=== PATIENT | female | born 1930 | race Caucasian/White ===

== ENCOUNTER 2016-08-18 14:01 | Emergency (ER) | payer MEDICARE ==
[2016-08-18 14:24] VITALS: O2SAT 96
[2016-08-18] MEDS ORDERED: Sodium Chloride 0.9% 1000 ML 1,000 ML IV STA (14:42)
--- NOTE | 2016-08-18 14:48 | ERPHSYRPT ---
- History of Present Illness Time Seen by Provider: 08/18/16 14:25 Source: patient, family Exam Limitations: no limitations Patient Subjective Stated Complaint: pt states she has been feeling weak for the past one week. pt family states she thinks pt is dehydrated. denies any recent illness or cough. pt states she does not want to eat or drink. Triage Nursing Assessment: pt pink, warm,dry. pt able to transfer to er cot without difficulty. pt afebrile. pt tongue dry. pt alert and oriented x3. family concerned about weight loss. Timing/Duration: week(s) (1) Severity: moderate Character of Deficits: general (difuse) Deficits: weak Baseline/Normal Cognition: alert oriented x 3 Current Cognition: alert oriented x 3 Baseline Gait: walks w/o assistance Associated Symptoms: weakness, headache (frontal) Allergies/Adverse Reactions: Penicillins Allergy (Verified 08/18/16 14:24) Rash Home Medications: Aspirin EC 81 mg [Ecotrin 81 mg] 81 mg PO DAILY 02/13/13 [History] Calcitriol 0.25 mcg PO UD 02/13/13 [History] Clopidogrel Bisulfate 75 mg [PLAVIX 75 MG Tablet] 75 mg PO DAILY 02/13/13 [History] HydrALAzine HCL 25 MG TAB [Apresoline 25 MG TABLET] 50 mg PO TID 02/13/13 [History] Metoprolol Succinate 50 mg [Toprol Xl 50 MG] 50 mg PO DAILY 02/13/13 [ History] PANTOPRAZOLE 40 mg Tablet [Protonix 40MG Tablet] 40 mg PO DAILY 02/13/13 [ History] Hydrochlorothiazide 25 mg [hydroDIURIL 25 MG] 25 mg PO DAILY 09/15/13 [ History] Atorvastatin Calcium [Lipitor] 20 mg PO HS 12/21/14 [History] Ergocalciferol (Vitamin D2) [Vitamin D2] 50,000 unit PO Q14D 12/21/14 [History] Isosorbide Mononitrate [Isosorbide Mononitrate ER] 30 mg PO DAILY 12/21/14 [ History] Hx Tetanus, Diphtheria Vaccination/Date Given: Yes (up to date) Hx Influenza Vaccination/Date Given: Yes Hx Pneumococcal Vaccination/Date Given: Yes Immunizations Up to Date: Yes - Review of Systems Constitutional: Weakness Eyes: No Symptoms Ears, Nose, & Throat: Throat Swelling, Other (feels as if her throat is dry and closing off) Respiratory: No Symptoms Cardiac: No Symptoms Abdominal/Gastrointestinal: No Symptoms Genitourinary Symptoms: No Symptoms Musculoskeletal: No Symptoms Skin: No Symptoms Neurological: Dizziness Psychological: No Symptoms Endocrine: No Symptoms Hematologic/Lymphatic: No Symptoms Immunological/Allergic: No Symptoms - Past Medical History Pertinent Past Medical History: Yes Neurological History: No Pertinent History ENT History: Cataracts Cardiac History: Coronary Artery Disease, High Cholesterol, Hypertension, Myocardial Infarction ([place]) Respiratory History: COPD, Pneumonia Endocrine Medical History: No Pertinent History Musculoskeletal History: Arthritis GI Medical History: No Pertinent History, Gallbladder Disease History: Renal Disease Psycho-Social History: No Pertinent History Female Reproductive Disorders: Cervical Cancer Other Medical History: 3 stents-CARDIAC. anemic - Past Surgical History Past Surgical History: Yes Neuro Surgical History: No Pertinent History Cardiac: Cardiac Catheterization, Cardiac Stent Respiratory: No Pertinent History Gastrointestinal: Cholecystectomy Genitourinary: No Pertinent History Musculoskeletal: No Pertinent History Female Surgical History: Lumpectomy, Tubal Ligation Other Surgical History: BLADDER "PATCHED" - Social History Smoking Status: Never smoker Exposure to second hand smoke: No Alcohol Use: None Drug Use: none Patient Lives Alone: No Significant Family History: heart disease, cancer, diabetes, hypertension - Female History Hx Now: No - Nursing Vital Signs Nursing Vital Signs: Initial Vital Signs Temperature 97.9 F Temperature Source Oral Pulse Rate 66 Respiratory Rate 18 Blood Pressure 151/56 Pain Intensity 0 - [place] Coma Scale Best Eye Response (Joanna): (4) open spontaneously Best Verbal Response (Joanna): (5) oriented Best Motor Response (Empire): (6) obeys commands Joanna Total: 15 - Physical Exam General Appearance: mild distress Eye Exam: bilateral eye: normal inspection, PERRL, EOMI Ears, Nose, Throat Exam: normal ENT inspection Neck Exam: normal inspection, non-tender, supple, full range of motion Respiratory: normal breath sounds, lungs clear Cardiovascular: regular rate/rhythm, normal heart sounds, normal peripheral pulses Gastrointestinal: soft, normal bowel sounds Back Exam: normal inspection, normal range of motion Extremity Exam: normal inspection Mental Status: alert, oriented x 3, 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 Exam: normal hearing, normal speech, PERRL Coordination/Gait: normal finger to nose Skin Exam: normal color SpO2 Interpretation: normal SpO2: 96 Oxygen Delivery: Room Air - Course Nursing assessment & vital signs reviewed: Yes EKG Interpreted by Me: RATE (53), Sinus Bob, Left [place] Deviation (-52), Other (Lateral T wave inversion since ECG of .) - Radiology Exams Chest X-ray Interpretation: Teleradiologist Report (Stable nonacute chest) - CT Exams Head CT Interpretation: Negative, Tele-radiologist Report Ordered Tests: Active Orders 24 hr Category Date Time Status Quarter Supervisor STAT Care 08/18/16 14:24 Active Clean Catch Urine Specimen STAT Care 08/18/16 14:42 Active EKG-ER Only STAT Care 08/18/16 14:42 Active IV Insertion STAT Care 08/18/16 14:25 Active IV Insertion STAT Care 08/18/16 14:42 Active Orthostatic Vital Signs STAT Care 08/18/16 14:42 Active CHEST 1 VIEW (PORTABLE) Stat Exams 08/18/16 14:42 Completed HEAD WITHOUT CONTRAST [CT] Stat Exams 08/18/16 14:42 Completed CBC W DIFF Stat Lab 08/18/16 15:00 Completed CMP Stat Lab 08/18/16 15:00 Completed MAGNESIUM Stat Lab 08/18/16 15:00 Completed TROPONIN Stat Lab 08/18/16 15:00 Completed UA Stat Lab 08/18/16 14:42 Completed Urine Triage Profile Stat Lab 08/18/16 14:42 Ordered Medication Summary Discontinued Medications Generic Name Dose Route Start Last Admin Trade Name Freq PRN Reason Stop Dose Admin Aspirin 324 mg 08/18/16 15:42 08/18/16 15:47 Baby Aspirin 81 Mg Chew PO 08/18/16 15:43 324 mg STAT ONE Administration Sodium Chloride 1,000 mls @ 999 mls/hr 08/18/16 14:42 08/18/16 14:59 Sodium Chloride 0.9% 1000 Ml IV 08/18/16 15:42 500 mls/hr .Q1H1M STA Administration Sodium Chloride Confirm 08/18/16 14:50 Sodium Chloride 0.9% 1000 Ml Administered 08/18/16 14:51 Dose 1,000 mls @ ud .ROUTE .STK-MED ONE Nitroglycerin 1 gm 08/18/16 15:41 08/18/16 15:47 Nitro-Bid 2% Ud Packets TOP 08/18/16 15:42 1 gm STAT ONE Administration Potassium Chloride 40 meq 08/18/16 15:45 Klor Con 10 Meq PO 08/18/16 15:46 STAT ONE Lab/Rad Data: Laboratory Result Diagrams 08/18/16 15:00 08/18/16 15:00 Laboratory Results 08/18/16 08/18/16 08/18/16 Range/Units 15:00 15:00 14:42 WBC 6.2 (4.0-10.5) K/mm3 RBC 4.27 (4.1-5.4) M/mm3 Hgb 12.8 (12.0-16.0) gm/dl Hct 39.1 (35-47) % MCV 91.6 (78-100) fl MCH 30.0 (26-32) pg MCHC 32.7 (32-36) g/dl RDW 12.8 (11.5-14.0) % Plt Count 202 (150-450) K/mm3 MPV 10.2 H (6-9.5) fl Gran % 59.4 (36.0-66.0) % Lymphocytes % 28.8 (24.0-44.0) % Monocytes % 8.9 (0.0-12.0) % Eosinophils % 2.7 (0.00-5.0) % Basophils % 0.2 (0.0-0.4) % Basophils # 0.01 (0-0.4) Sodium 137 (136-145) mEq/L Potassium 2.5 L* (3.5-5.1) mEq/L Chloride 87 L (98-107) mEq/L Carbon Dioxide 36.3 H (21-32) mEq/L Anion Gap 15.4 H (5-15) MEQ/L BUN 90 H (9-20) mg/dL Creatinine 3.29 H (0.55-1.30) mg/dl Estimated GFR 14 ML/MIN Glucose 141 H (70-110) MG/DL Calcium 10.1 (8.5-10.1) mg/dL Magnesium 2.5 H (1.8-2.4) mg/dL Total Bilirubin 0.7 (0.2-1.0) mg/dL AST 25 (15-37) U/L ALT 14 (12-78) U/L Alkaline Phosphatase 79 (46-116) U/L Troponin I 0.043 (0.000-0.056) ng/ml Serum Total Protein 8.2 (6.4-8.2) gm/dL Albumin 4.5 (3.4-5.0) g/dL Ur Collection Type CATH Urine Color YELLOW (YELLOW) Urine Appearance CLEAR (CLEAR) Urine pH 6.0 (5-6) Ur Specific Heidrick 1.010 (1.005-1.025) Urine Protein NEGATIVE (Negative) Urine Glucose (UA) NEGATIVE (NEGATIVE) mg/dL Urine Ketones NEGATIVE (NEGATIVE) Urine Nitrite NEGATIVE (NEGATIVE) Urine Bilirubin NEGATIVE (NEGATIVE) Urine Urobilinogen 0.2 (0-1) mg/dL Urine WBC (Auto) NEGATIVE (NEGATIVE) Urine RBC (Auto) NEGATIVE (0-5) Shon/ul Specimen Received 08/18/16 1500 - Progress Progress: improved Counseled pt/family regarding: lab results, diagnosis, need for follow-up, rad results - Departure Time of Disposition: 15:55 Departure Disposition: Transfer (To [facility] for Dr. Seth Sanchez) Clinical Impression: Hypokalemia Chest pain Qualifiers: Chest pain type: unspecified Qualified Code(s): R07.9 - Chest pain, unspecified Chronic kidney disease Qualifiers: Chronic kidney disease stage: unspecified stage Qualified Code(s): N18.9 - Chronic kidney disease, unspecified Condition: Stable Critical Care Time: Yes Critical Care Time(excluding separately billable procedures): 75-104 minutes
[2016-08-18] MEDS ORDERED: Sodium Chloride 0.9% 1000 ML 1,000 ML ONE (14:50)
[2016-08-18 15:07] LABS: COMPLETE URINE MICROSCOPIC? NO; Collection Type CATH
[2016-08-18 15:09] LABS: BASOPHIL % 0.2 % (0.0-0.4); Eosinophil % 2.7 % (0.00-5.0); Granulocytes % 59.4 % (36.0-66.0); Lymphocytes % 28.8 % (24.0-44.0); Mean Cell Volume 91.6 fl (78-100); Mean Platelet Volume 10.2 fl (6-9.5); Monocytes % 8.9 % (0.0-12.0); Platelet Count 202 K/mm3 (150-450); Red Blood Count 4.27 M/mm3 (4.1-5.4); Red Cell Distribution Width 12.8 % (11.5-14.0); White Blood Count 6.2 K/mm3 (4.0-10.5)
--- NOTE | 2016-08-18 15:29 | XRAY ---
Indication: Dizziness. Comparison: Dec, 2014 Portable chest remains hyperinflated and clear. Heart is not enlarged. Vascularity normal. Bony thorax intact again with mild osteopenia and degenerative changes. Impression: Stable nonacute chest with chronic features.
--- NOTE | 2016-08-18 15:34 | XRAY ---
Indication: Dizziness and weakness. Multiple contiguous axial images obtained through the head without contrast. Comparison: September 12, 2007 Stable age-appropriate global atrophy and basal ganglion physiologic calcifications. No acute intracranial hemorrhage, abnormal extra-axial fluid collection, or mass effect. Fourth ventricle is midline without hydrocephalus. Sanderson-white matter differentiation is preserved. Bony calvarium intact. Visualized paranasal sinuses and mastoid air cells are clear. Impression: Stable negative CT head without contrast exam. CT DI is 66.59
[2016-08-18 15:35] LABS: ALBUMIN 4.5 g/dL (3.4-5.0); ANION GAP 15.4 MEQ/L (5-15); BILIRUBIN,TOTAL 0.7 mg/dL (0.2-1.0); Carbon Dioxide 36.3 mEq/L (21-32); MAGNESIUM 2.5 mg/dL (1.8-2.4); TROPONIN 0.043 ng/ml (0.000-0.056); Total Protein 8.2 gm/dL (6.4-8.2)
[2016-08-18] MEDS ORDERED: NITRO-BID 2% UD PACKETS TOP ONE (15:41)
[2016-08-18] MEDS ORDERED: BABY ASPIRIN 81 MG CHEW PO ONE (15:42)
[2016-08-18 15:45] LABS: Potassium 2.5 mEq/L (3.5-5.1)
[2016-08-18] MEDS ORDERED: Klor Con 10 MEQ PO ONE (15:45)
[2016-08-18] MEDS ORDERED: NITRO-BID 2% UD PACKETS ONE (15:46)
[2016-08-18] MEDS ORDERED: BABY ASPIRIN 81 MG CHEW ONE (15:46)
[2016-08-18 17:23] VITALS: BP 128/61
[2016-08-18 17:59] VITALS: PULSE 55
== END 2016-08-18 18:09 | disposition short-term general hospital (02) ==
LOC: ED 14:01
DX: R07.9 Chest pain, unspecified (principal); N18.9 Chronic kidney disease, unspecified; E87.6 Hypokalemia; Z79.899 Other long term (current) drug therapy; I25.10 Atherosclerotic heart disease of native coronary artery without angina pectoris; I10 Essential (primary) hypertension; E78.00 Pure hypercholesterolemia, unspecified
CPT/HCPCS: 93041; 99284; 36000; 96360; 96361; 93005; 81002; 36415; 83735; 80307; 85025; 80053; 84484; 71010; 70450; P9612

== ENCOUNTER 2016-12-29 21:18 | Emergency (ER) | payer MEDICARE ==
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
[2016-12-29 22:33] LABS: BASOPHIL % 0.2 % (0.0-0.4); Eosinophil % 3.3 % (0.00-5.0); Granulocytes % 45.2 % (36.0-66.0); Lymphocytes % 33.2 % (24.0-44.0); Mean Cell Volume 95.4 fl (78-100); Mean Corpuscular Hemoglobin 30.3 pg (26-32); Mean Platelet Volume 9.6 fl (6-9.5); Monocytes % 18.1 % (0.0-12.0); Platelet Count 185 K/mm3 (150-450); Red Blood Count 3.23 M/mm3 (4.1-5.4); Red Cell Distribution Width 12.6 % (11.5-14.0)
[2016-12-29 23:07] LABS: ALBUMIN 3.1 g/dL (3.4-5.0); ALKALINE PHOSPHATASE 85 U/L (46-116); BILIRUBIN,TOTAL 0.3 mg/dL (0.2-1.0); BLOOD UREA NITROGEN 33 mg/dL (9-20); CHLORIDE 103 mEq/L (98-107); Carbon Dioxide 25.6 mEq/L (21-32); Glucose 119 MG/DL (70-110); Potassium 3.8 mEq/L (3.5-5.1); SGOT/AST 14 U/L (15-37); SGPT/ALT 9 U/L (12-78); SODIUM 137 mEq/L (136-145); Total Protein 6.9 gm/dL (6.4-8.2)
[2016-12-29 23:14] LABS: TROPONIN < 0.017 ng/ml (0.000-0.056)
[2016-12-29] MEDS ORDERED: Zithromax 250 MG TABLET PO ONE (23:44)
[2016-12-29] MEDS ORDERED: Zithromax 250 MG TABLET ONE (23:50)
[2016-12-29 23:59] VITALS: BP 130/80; PULSE 80; O2SAT 96
--- NOTE | 2016-12-30 09:25 | XRAY ---
Indication: Cough. Comparison: August 18, 2016. Portable chest remains hyperinflated with focal right base fibrosis/scarring. Remaining lungs clear. Heart is not enlarged. New left-sided dual-lead pacemaker. Vascularity normal. Bony thorax intact again with osteopenia and degenerative changes. Impression: Nonacute chest with chronic features. New left sided dual-lead pacemaker without complications.
== END 2016-12-30 00:15 | disposition home or self-care (01) ==
LOC: ED 21:18
DX: H66.001 Acute suppurative otitis media without spontaneous rupture of ear drum, right ear (principal); R05 Cough; J40 Bronchitis, not specified as acute or chronic; I25.10 Atherosclerotic heart disease of native coronary artery without angina pectoris; E78.5 Hyperlipidemia, unspecified; I10 Essential (primary) hypertension; I25.2 Old myocardial infarction; Z98.61 Coronary angioplasty status; Z79.899 Other long term (current) drug therapy
CPT/HCPCS: 36000; 36415; 71010; 80053; 83880; 84484; 85025; 93005; 99284; A9270-GY

== ENCOUNTER 2017-03-02 14:24 | Emergency (ER) | payer MEDICARE ==
[2017-03-02] MEDS ORDERED: BACIGUENT PACKET TP ONE (15:25)
[2017-03-02] MEDS ORDERED: TYLENOL 325 MG PO ONE (15:26)
[2017-03-02 15:27] VITALS: BP 160/70; PULSE 78; O2SAT 97
[2017-03-02] MEDS ORDERED: BACIGUENT PACKET ONE (15:31)
[2017-03-02] MEDS ORDERED: TYLENOL 325 MG ONE (15:31)
[2017-03-02] MEDS ORDERED: TENIVAC VIAL IM ONE (15:32)
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
[2017-03-02] MEDS ORDERED: Adacel Vial IM ONE (15:52)
== END 2017-03-02 16:06 | disposition home or self-care (01) ==
LOC: ED 14:24
DX: T23.4 Corrosion of unspecified degree of wrist and hand (principal); Y93.H3 Activity, building and construction; Y92.018 Other place in single-family (private) house as the place of occurrence of the external cause
CPT/HCPCS: 90471; 90715; 96372; 99281; A9270-GY

== ENCOUNTER 2019-10-04 16:45 | Emergency (ER) | payer MEDICARE ==
--- NOTE | 2019-10-04 16:55 | ERPHSYRPT ---
- History of Present Illness Time Seen by Provider: 10/04/19 16:54 Source: patient Exam Limitations: no limitations Physician History: This is an 89-year-old female with a history of kidney disease, coronary artery disease with pacemaker placed in the past as well as hypertension. She presents with 3-day history of muscle aches and pains. She has a cough and sore throat. Denies vomiting and she denies abdominal pain. She denies diarrhea. Patient lives with her 71-year-old daughter and she has similar symptoms. Patient denies dysuria or frequency symptoms. Denies chest pain. Timing/Duration: day(s) (3) Cough Quality/Degree: mild Possible Cause: occasional episodes Modifying Factors: Improves With: coughing Associated Symptoms: cough, muscle aches Allergies/Adverse Reactions: Penicillins Allergy (Verified 10/04/19 17:03) Rash Home Medications: Aspirin EC 81 mg [Ecotrin 81 mg] 81 mg PO DAILY 02/13/13 [History] Calcitriol 0.25 mcg PO UD 02/13/13 [History] Clopidogrel Bisulfate 75 mg [PLAVIX 75 MG Tablet] 75 mg PO DAILY 02/13/13 [History] HydrALAzine HCL 25 MG TAB [Apresoline 25 MG TABLET] 10 mg PO TID 02/13/13 [History] Metoprolol Succinate 50 mg [Toprol Xl 50 MG] 50 mg PO DAILY 02/13/13 [ History] PANTOPRAZOLE 40 mg Tablet [Protonix 40MG Tablet] 40 mg PO DAILY 02/13/13 [ History] Hydrochlorothiazide 25 mg [hydroDIURIL 25 MG] 25 mg PO TID 09/15/13 [ History] Atorvastatin Calcium [Lipitor] 20 mg PO HS 12/21/14 [History] Isosorbide Mononitrate [Isosorbide Mononitrate ER] 30 mg PO DAILY 12/21/14 [ History] Furosemide 40 mg [Lasix 40 MG] 40 mg PO DAILY 08/18/16 [History] Hx Tetanus, Diphtheria Vaccination/Date Given: Yes (up to date) Hx Influenza Vaccination/Date Given: Yes Hx Pneumococcal Vaccination/Date Given: Yes - Review of Systems Constitutional: Weakness Eyes: No Symptoms Ears, Nose, & Throat: No Symptoms Respiratory: Cough Cardiac: No Symptoms Abdominal/Gastrointestinal: No Symptoms Genitourinary Symptoms: No Symptoms Musculoskeletal: Arthralgias, Myalgias Skin: No Symptoms Neurological: No Symptoms Psychological: No Symptoms Endocrine: No Symptoms Hematologic/Lymphatic: No Symptoms Immunological/Allergic: No Symptoms All Other Systems: Reviewed and Negative - Past Medical History Pertinent Past Medical History: Yes Neurological History: TIA ENT History: Cataracts Cardiac History: Coronary Artery Disease, High Cholesterol, Hypertension Respiratory History: No Pertinent History Endocrine Medical History: Other Musculoskeletal History: Osteoarthritis GI Medical History: No Pertinent History, Gallbladder Disease History: Renal Disease Psycho-Social History: No Pertinent History Female Reproductive Disorders: Cervical Cancer Other Medical History: STAGE 4 CKD, PACEMAKER PLACEMENT 2 YEARS AGO WITH HX OF STENT PLACEMENT X 3. - Past Surgical History Past Surgical History: Yes Neuro Surgical History: No Pertinent History Cardiac: Cardiac Catheterization, Cardiac Stent, Pacemaker Respiratory: No Pertinent History Gastrointestinal: Cholecystectomy Genitourinary: No Pertinent History Musculoskeletal: No Pertinent History Female Surgical History: Lumpectomy, Tubal Ligation Other Surgical History: BLADDER "PATCHED" - Social History Smoking Status: Never smoker Exposure to second hand smoke: No Alcohol Use: None Drug Use: none Patient Lives Alone: No Significant Family History: heart disease, cancer, diabetes, hypertension - Nursing Vital Signs Nursing Vital Signs: Initial Vital Signs Temperature 98.2 F 10/04/19 16:49 Pulse Rate 99 H 10/04/19 16:49 Respiratory Rate 8 L 10/04/19 16:49 Blood Pressure 188/104 10/04/19 16:49 O2 Sat by Pulse Oximetry 100 10/04/19 16:49 Pain Scale Pain Intensity 0 - Physical Exam General Appearance: mild distress, alert, anxiety Eye Exam: PERRL/EOMI, eyes nml inspection Ears, Nose, Throat Exam: normal ENT inspection, dry mucous membranes Neck Exam: normal inspection, non-tender, supple, full range of motion Respiratory Exam: normal breath sounds, lungs clear, airway intact, No chest tenderness, No respiratory distress Cardiovascular Exam: regular rate/rhythm, normal heart sounds, normal peripheral pulses Gastrointestinal/Abdomen Exam: soft, normal bowel sounds, No tenderness Pelvic Exam: not done Rectal Exam: not done Back Exam: normal inspection, normal range of motion, vertebral tenderness, No CVA tenderness Extremity Exam: normal inspection, normal range of motion, pelvis stable Neurologic Exam: alert, oriented x 3, cooperative, steel tester II-XII nml as tested Skin Exam: normal color, warm, dry Lymphatic Exam: No adenopathy SpO2 Interpretation: normal O2 Delivery: Room Air - Course Nursing assessment & vital signs reviewed: Yes EKG Interpreted by Me: RATE (81), Sinus Rhythm, NORMAL AXIS, NORMAL INTERVALS, NORMAL QRS, Other (Compared to an EKG performed on December 29, 2016, there is no significant change. On the current EKG there is no evidence of any acute findings) Ordered Tests: Active Orders 24 hr Category Date Time Status IV Insertion STAT Care 10/04/19 17:22 Active CHEST 1 VIEW (PORTABLE) Stat Exams 10/04/19 17:55 Taken AMYLASE Stat Lab 10/04/19 17:30 Completed CBC W DIFF Stat Lab 10/04/19 17:30 Completed CMP Stat Lab 10/04/19 17:30 Completed CULTURE,URINE Stat Lab 10/04/19 20:03 Received LIPASE Stat Lab 10/04/19 17:30 Completed [place] Screen Stat Lab 10/04/19 17:30 Completed TROPONIN Q3H Lab 10/04/19 Completed TROPONIN Q3H Lab 10/04/19 20:38 Completed UA W/RFX UR CULTURE Stat Lab 10/04/19 20:03 Completed Medication Summary Discontinued Medications Generic Name Dose Route Start Last Admin Trade Name Freq PRN Reason Stop Dose Admin Sodium Chloride 1,000 mls @ 999 mls/hr 10/04/19 17:22 10/04/19 18:45 Sodium Chloride 0.9% 1000 Ml IV 10/04/19 18:22 Infused .Q1H1M STA Infusion Sodium Chloride Confirm 10/04/19 17:28 Sodium Chloride 0.9% 1000 Ml Administered 10/04/19 17:29 Dose 1,000 mls @ ud .ROUTE .STK-MED ONE Sodium Chloride 500 mls @ 500 mls/hr 10/04/19 20:18 10/04/19 20:23 Sodium Chloride 0.9% 500 Ml IV 10/04/19 21:17 500 mls/hr .Q1H ONE Administration Sodium Chloride Confirm 10/04/19 20:21 Sodium Chloride 0.9% 500 Ml Administered 10/04/19 20:22 Dose 500 mls @ ud IV .STK-MED ONE Levofloxacin/Dextrose 500 mg in 100 mls @ 100 mls/hr 10/04/19 20:23 10/04/19 20:30 Levofloxacin 500mg/100ml D5w IV 10/04/19 21:22 100 mls/hr STAT STA 100 mls/hr Administration Levofloxacin/Dextrose Confirm 10/04/19 20:28 Levofloxacin 500mg/100ml D5w Administered 10/04/19 20:29 Dose 500 mg in 100 mls @ ud IV .STK-MED ONE Ondansetron HCl 4 mg 10/04/19 17:22 10/04/19 17:29 Zofran 4 Mg/2 Ml Vial IV 10/04/19 17:23 4 mg STAT ONE Administration Ondansetron HCl Confirm 10/04/19 17:28 Zofran 4 Mg/2 Ml Vial Administered 10/04/19 17:29 Dose 4 mg .ROUTE .STK-MED ONE Oseltamivir Phosphate 75 mg 10/04/19 18:51 10/04/19 19:21 Tamiflu 75mg Capsule PO 10/04/19 18:52 75 mg STAT ONE Administration Oseltamivir Phosphate Confirm 10/04/19 19:21 Tamiflu 75mg Capsule Administered 10/04/19 19:22 Dose 75 mg PO .STK-MED ONE Lab/Rad Data: Laboratory Result Diagrams 10/04/19 17:30 10/04/19 17:30 Laboratory Results 10/04/19 10/04/19 10/04/19 Range/Units Unknown 20:38 20:03 WBC (4.0-10.5) K/mm3 RBC (4.1-5.4) M/mm3 Hgb (12.0-16.0) gm/dl Hct (35-47) % MCV (78-100) fl MCH (26-32) pg MCHC (32-36) g/dl RDW (11.5-14.0) % Plt Count (150-450) K/mm3 MPV (7.5-11.0) fl Gran % (36.0-66.0) % Eos # (Auto) (0-0.5) Absolute Lymphs (auto) (1.0-4.6) Absolute Monos (auto) (0.0-1.3) Lymphocytes % (24.0-44.0) % Monocytes % (0.0-12.0) % Eosinophils % (0.00-5.0) % Basophils % (0.0-0.4) % Absolute Granulocytes (1.4-6.9) Basophils # (0-0.4) Sodium (137-145) mmol/L Potassium (3.5-5.1) mmol/L Chloride (98-107) mmol/L Carbon Dioxide (22-30) mmol/L Anion Gap (5-15) MEQ/L BUN (7-17) mg/dL Creatinine (0.52-1.04) mg/dL Estimated GFR ML/MIN Glucose (74-106) mg/dL Calcium (8.4-10.2) mg/dL Total Bilirubin (0.2-1.3) mg/dL AST (14-36) U/L ALT (0-35) U/L Alkaline Phosphatase (38-126) U/L Troponin I 0.041 H* 0.047 H* (0.000-0.034) ng/mL Serum Total Protein (6.3-8.2) g/dL Albumin (3.5-5.0) g/dL Amylase (30-110) U/L Lipase (23-300) U/L Urine Color YELLOW (YELLOW) Urine Appearance SLIGHTLY CLOUDY (CLEAR) Urine pH 5.0 (5-6) Ur Specific [place] 1.013 (1.005-1.025) Urine Protein 30 (Negative) Urine Ketones TRACE (NEGATIVE) Urine Blood NEGATIVE (0-5) Shon/ul Urine Nitrite NEGATIVE (NEGATIVE) Urine Bilirubin NEGATIVE (NEGATIVE) Urine Urobilinogen NEGATIVE (0-1) mg/dL Ur Leukocyte Esterase LARGE (NEGATIVE) Urine WBC (Auto) 26-50 (0-5) /HPF Urine RBC (Auto) 3-5 (0-2) /HPF U Epithel Cells (Auto) NONE (FEW) /HPF Urine Bacteria (Auto) NONE (NEGATIVE) /HPF Urine Mucus (Auto) SLIGHT (NEGATIVE) /HPF Urine Culture Reflexed YES (NO) Urine Glucose NEGATIVE (NEGATIVE) mg/dL Monoscreen (Negative) Influenza Type A Ag (NEGATIVE) Influenza Type B Ag (NEGATIVE) RSV (PCR) (Negative) Group A Strep Antibody (NEGATIVE) 10/04/19 10/04/19 10/04/19 Range/Units 17:30 17:30 17:30 WBC (4.0-10.5) K/mm3 RBC (4.1-5.4) M/mm3 Hgb (12.0-16.0) gm/dl Hct (35-47) % MCV (78-100) fl MCH (26-32) pg MCHC (32-36) g/dl RDW (11.5-14.0) % Plt Count (150-450) K/mm3 MPV (7.5-11.0) fl Gran % (36.0-66.0) % Eos # (Auto) (0-0.5) Absolute Lymphs (auto) (1.0-4.6) Absolute Monos (auto) (0.0-1.3) Lymphocytes % (24.0-44.0) % Monocytes % (0.0-12.0) % Eosinophils % (0.00-5.0) % Basophils % (0.0-0.4) % Absolute Granulocytes (1.4-6.9) Basophils # (0-0.4) Sodium 136 L (137-145) mmol/L Potassium 4.5 (3.5-5.1) mmol/L Chloride 98 (98-107) mmol/L Carbon Dioxide 28 (22-30) mmol/L Anion Gap 14.2 (5-15) MEQ/L BUN 35 H (7-17) mg/dL Creatinine 1.69 H (0.52-1.04) mg/dL Estimated GFR 30.3 ML/MIN Glucose 97 (74-106) mg/dL Calcium 9.7 (8.4-10.2) mg/dL Total Bilirubin 0.60 (0.2-1.3) mg/dL AST 45 H (14-36) U/L ALT 26 (0-35) U/L Alkaline Phosphatase 100 (38-126) U/L Troponin I (0.000-0.034) ng/mL Serum Total Protein 7.9 (6.3-8.2) g/dL Albumin 4.4 (3.5-5.0) g/dL Amylase 118 H (30-110) U/L Lipase 237 (23-300) U/L Urine Color (YELLOW) Urine Appearance (CLEAR) Urine pH (5-6) Ur Specific [place] (1.005-1.025) Urine Protein (Negative) Urine Ketones (NEGATIVE) Urine Blood (0-5) Shon/ul Urine Nitrite (NEGATIVE) Urine Bilirubin (NEGATIVE) Urine Urobilinogen (0-1) mg/dL Ur Leukocyte Esterase (NEGATIVE) Urine WBC (Auto) (0-5) /HPF Urine RBC (Auto) (0-2) /HPF U Epithel Cells (Auto) (FEW) /HPF Urine Bacteria (Auto) (NEGATIVE) /HPF Urine Mucus (Auto) (NEGATIVE) /HPF Urine Culture Reflexed (NO) Urine Glucose (NEGATIVE) mg/dL Monoscreen NEGATIVE (Negative) Influenza Type A Ag POSITIVE (NEGATIVE) Influenza Type B Ag NEGATIVE (NEGATIVE) RSV (PCR) NEGATIVE (Negative) Group A Strep Antibody NEGATIVE (NEGATIVE) 10/04/19 Range/Units 17:30 WBC 4.4 (4.0-10.5) K/mm3 RBC 4.41 (4.1-5.4) M/mm3 Hgb 13.3 (12.0-16.0) gm/dl Hct 41.9 (35-47) % MCV 95.0 (78-100) fl MCH 30.2 (26-32) pg MCHC 31.7 L (32-36) g/dl RDW 13.6 (11.5-14.0) % Plt Count 178 (150-450) K/mm3 MPV 9.9 (7.5-11.0) fl Gran % 45.7 (36.0-66.0) % Eos # (Auto) 0.03 (0-0.5) Absolute Lymphs (auto) 1.65 (1.0-4.6) Absolute Monos (auto) 0.70 (0.0-1.3) Lymphocytes % 37.5 (24.0-44.0) % Monocytes % 15.9 H (0.0-12.0) % Eosinophils % 0.7 (0.00-5.0) % Basophils % 0.2 (0.0-0.4) % Absolute Granulocytes 2.01 (1.4-6.9) Basophils # 0.01 (0-0.4) Sodium (137-145) mmol/L Potassium (3.5-5.1) mmol/L Chloride (98-107) mmol/L Carbon Dioxide (22-30) mmol/L Anion Gap (5-15) MEQ/L BUN (7-17) mg/dL Creatinine (0.52-1.04) mg/dL Estimated GFR ML/MIN Glucose (74-106) mg/dL Calcium (8.4-10.2) mg/dL Total Bilirubin (0.2-1.3) mg/dL AST (14-36) U/L ALT (0-35) U/L Alkaline Phosphatase (38-126) U/L Troponin I (0.000-0.034) ng/mL Serum Total Protein (6.3-8.2) g/dL Albumin (3.5-5.0) g/dL Amylase (30-110) U/L Lipase (23-300) U/L Urine Color (YELLOW) Urine Appearance (CLEAR) Urine pH (5-6) Ur Specific [place] (1.005-1.025) Urine Protein (Negative) Urine Ketones (NEGATIVE) Urine Blood (0-5) Shon/ul Urine Nitrite (NEGATIVE) Urine Bilirubin (NEGATIVE) Urine Urobilinogen (0-1) mg/dL Ur Leukocyte Esterase (NEGATIVE) Urine WBC (Auto) (0-5) /HPF Urine RBC (Auto) (0-2) /HPF U Epithel Cells (Auto) (FEW) /HPF Urine Bacteria (Auto) (NEGATIVE) /HPF Urine Mucus (Auto) (NEGATIVE) /HPF Urine Culture Reflexed (NO) Urine Glucose (NEGATIVE) mg/dL Monoscreen (Negative) Influenza Type A Ag (NEGATIVE) Influenza Type B Ag (NEGATIVE) RSV (PCR) (Negative) Group A Strep Antibody (NEGATIVE) - Progress Progress: improved, re-examined Air Movement: good Progress Note: 10/04/19 21:22 Chest x-ray shows no acute process. Her drama teacher is Dr. Shon Royal 10/04/19 22:21 I spoke with emergency physician Dr. Maza at [facility] emergency department. I reviewed the patient history, condition, EKG findings, x-ray findings. The patient will be transferred to their facility. He accepts the patient. Blood Culture(s) Obtained: No Antibiotics given: Yes Counseled pt/family regarding: lab results, diagnosis, need for follow-up, rad results - Departure Departure Disposition: Transfer Clinical Impression: Influenza A, Urinary tract infection, Weakness, Elevated troponin Condition: Stable Critical Care Time: No Referrals: MANI COKER [Primary Care Provider] -
[2019-10-04] MEDS ORDERED: Sodium Chloride 0.9% 1000 ML 1,000 ML IV STA (17:22)
[2019-10-04] MEDS ORDERED: Zofran 4 MG/2 ML VIAL IV ONE (17:22)
[2019-10-04] MEDS ORDERED: Sodium Chloride 0.9% 1000 ML 1,000 ML ONE (17:28)
[2019-10-04] MEDS ORDERED: Zofran 4 MG/2 ML VIAL ONE (17:28)
[2019-10-04 17:51] LABS: Absolute Neutrophil Ct (ANC) 2.01 (1.4-6.9); BASOPHIL % 0.2 % (0.0-0.4); Basophil (Absolute #) 0.01 (0-0.4); Eosinophil % 0.7 % (0.00-5.0); Eosinophil (Absolute #) 0.03 (0-0.5); Hematocrit 41.9 % (35-47); Hemoglobin 13.3 gm/dl (12.0-16.0); Lymphocyte (Absolute #) 1.65 (1.0-4.6); Lymphocytes % 37.5 % (24.0-44.0); Mean Corpuscular Hemoglobin 30.2 pg (26-32); Mean Corpuscular Hgb Concent. 31.7 g/dl (32-36); Mean Platelet Volume 9.9 fl (7.5-11.0); Monocytes % 15.9 % (0.0-12.0); Neutrophil % 45.7 % (36.0-66.0); Platelet Count 178 K/mm3 (150-450); Red Blood Count 4.41 M/mm3 (4.1-5.4); Red Cell Distribution Width 13.6 % (11.5-14.0); White Blood Count 4.4 K/mm3 (4.0-10.5)
[2019-10-04 17:56] LABS: ALBUMIN 4.4 g/dL (3.5-5.0); ANION GAP 14.2 MEQ/L (5-15); BILIRUBIN,TOTAL 0.6 mg/dL (0.2-1.3); Calcium 9.7 mg/dL (8.4-10.2); Creatinine 1 1.69 mg/dL (0.52-1.04); Potassium 4.5 mmol/L (3.5-5.1); Total Protein 7.9 g/dL (6.3-8.2)
[2019-10-04 18:40] LABS: Group A Strep NEGATIVE (NEGATIVE); INFLUENZA B NEGATIVE (NEGATIVE); RESPIRATORY SYNCTIAL VIRUS NEGATIVE (Negative)
[2019-10-04 18:41] LABS: INFLUENZA A POSITIVE (NEGATIVE)
[2019-10-04] MEDS ORDERED: Tamiflu 75MG Capsule PO ONE ×2 (18:51→19:21)
[2019-10-04 20:09] LABS: Appearance SLIGHTLY CLOUDY (CLEAR); Bilirubin NEGATIVE (NEGATIVE); Blood NEGATIVE Ery/ul (0-5); Glucose NEGATIVE (NEGATIVE); Ketones TRACE (NEGATIVE); Leukocyte Esterase LARGE (NEGATIVE); Mucus SLIGHT /HPF (NEGATIVE); Nitrite NEGATIVE (NEGATIVE); Protein,Urine Dip 30 (Negative); Specific Gravity 1.013 (1.005-1.025); Urobilinogen NEGATIVE mg/dL (0-1); WBC 26-50 /HPF (0-5)
[2019-10-04] MEDS ORDERED: Sodium Chloride 0.9% 500 ML 500 ML IV ONE ×2 (20:18→20:21)
[2019-10-04] MEDS ORDERED: Levofloxacin 500MG/100ML D5W 500 MG/100 ML BAG IV STA (20:23)
[2019-10-04] MEDS ORDERED: Levofloxacin 500MG/100ML D5W 500 MG/100 ML BAG IV ONE (20:28)
[2019-10-04 21:10] VITALS: O2SAT 97
[2019-10-04 22:42] VITALS: BP 174/92; PULSE 72
--- NOTE | 2019-10-05 08:46 | XRAY ---
Indication: Cough. Comparison: June 30, 2018. Portable chest remains clear. Heart is not enlarged again with left-sided pacemaker and coronary stent graft. Bony thorax intact again with osteopenia, degenerative changes, and scoliosis. Impression: Stable nonacute chest with chronic features.
== END 2019-10-04 22:43 | disposition short-term general hospital (02) ==
LOC: ED 16:45
DX: J09.X2 Influenza due to identified novel influenza A virus with other respiratory manifestations (principal); N39.0 Urinary tract infection, site not specified; R53.1 Weakness; R79.89 Other specified abnormal findings of blood chemistry; N18.9 Chronic kidney disease, unspecified; I25.10 Atherosclerotic heart disease of native coronary artery without angina pectoris; Z95.0 Presence of cardiac pacemaker; I10 Essential (primary) hypertension; Z79.899 Other long term (current) drug therapy; E78.00 Pure hypercholesterolemia, unspecified; Z86.73 Personal history of transient ischemic attack (TIA), and cerebral infarction without residual deficits
CPT/HCPCS: 36000; 36415; 71045; 80053; 81001; 82150; 83690; 84484; 85025; 86308; 87077; 87086; 87186; 87631; 87651; 93005; 96360; 96361; 96365; 96374; 99285; J1956; J2405; A9270-GY

== ENCOUNTER 2019-10-15 10:05 | Emergency (ER) | payer MEDICARE ==
[2019-10-15] MEDS ORDERED: TYLENOL 325 MG PO STA (10:24)
--- NOTE | 2019-10-15 10:29 | ERPHSYRPT ---
- History of Present Illness Time Seen by Provider: 10/15/19 10:15 Source: patient Exam Limitations: no limitations Patient Subjective Stated Complaint: Pt stood up last night and her left leg moved and her right one didn't and it caused her to fall and injured her right ankle, unable to place weight on it Triage Nursing Assessment: Pt brought in to the ER by her family, pt unable to place weight on right foot, hypertensive, pulses normal, cap refill normal, no other difficulties at this time Physician History: Patient is an 89-year-old female presents to our ED with complaints of pain to her right foot and ankle. Patient was at a restaurant last night eating. Patient states she misstepped and fell. Patient went home however this morning awoke and felt pain at her right ankle. Patient states she had the flu last week. Patient requesting blood work to make sure that nothing is abnormal due to the recent influenza. No associated chest pain or shortness of breath. No nausea vomiting or diaphoresis. No BHT or LOC. No neck pain. Cervical spine cleared clinically. Daughter at bedside. They voiced no other complaints at this time. Timing/Duration: today Severity: moderate Modifying Factors: Improves With: cold therapy Associated Symptoms: denies symptoms, No nausea, No vomiting, No abdominal pain , No shortness of breath, No heartburn, No diaphoresis, No cough, No chills, No chest pain, No fever, No headaches, No loss of appetite, No malaise, No rash, No syncope, No seizure, No weakness Allergies/Adverse Reactions: Penicillins Allergy (Verified 10/15/19 10:18) Rash Home Medications: Aspirin EC 81 mg [Ecotrin 81 mg] 81 mg PO DAILY 02/13/13 [History] Calcitriol 0.25 mcg PO UD 02/13/13 [History] Clopidogrel Bisulfate 75 mg [PLAVIX 75 MG Tablet] 75 mg PO DAILY 02/13/13 [History] HydrALAzine HCL 25 MG TAB [Apresoline 25 MG TABLET] 10 mg PO TID 02/13/13 [History] Metoprolol Succinate 50 mg [Toprol Xl 50 MG] 50 mg PO DAILY 02/13/13 [ History] PANTOPRAZOLE 40 mg Tablet [Protonix 40MG Tablet] 40 mg PO DAILY 02/13/13 [ History] Hydrochlorothiazide 25 mg [hydroDIURIL 25 MG] 25 mg PO TID 09/15/13 [ History] Atorvastatin Calcium [Lipitor] 20 mg PO HS 12/21/14 [History] Isosorbide Mononitrate [Isosorbide Mononitrate ER] 30 mg PO DAILY 12/21/14 [ History] Furosemide 40 mg [Lasix 40 MG] 40 mg PO DAILY 08/18/16 [History] Hx Tetanus, Diphtheria Vaccination/Date Given: Yes (up to date) Hx Influenza Vaccination/Date Given: Yes Hx Pneumococcal Vaccination/Date Given: Yes - Review of Systems Constitutional: No Fever, No Chills Eyes: No Symptoms Ears, Nose, & Throat: No Symptoms Respiratory: No Symptoms, No Cough, No Dyspnea Cardiac: No Symptoms, No Chest Pain, No Edema, No Syncope Abdominal/Gastrointestinal: No Symptoms, No Abdominal Pain, No Nausea, No Vomiting, No Diarrhea Genitourinary Symptoms: No Symptoms, No Dysuria Musculoskeletal: No Symptoms, No Back Pain, No Neck Pain Skin: No Symptoms, No Rash Neurological: No Symptoms, No Dizziness, No Focal Weakness, No Sensory Changes Psychological: No Symptoms Endocrine: No Symptoms All Other Systems: Reviewed and Negative - Past Medical History Pertinent Past Medical History: Yes Neurological History: TIA ENT History: Cataracts Cardiac History: Coronary Artery Disease, High Cholesterol, Hypertension Respiratory History: No Pertinent History Endocrine Medical History: Other Musculoskeletal History: Osteoarthritis GI Medical History: No Pertinent History, Gallbladder Disease History: Renal Disease Psycho-Social History: No Pertinent History Female Reproductive Disorders: Cervical Cancer Other Medical History: STAGE 4 CKD, PACEMAKER PLACEMENT 2 YEARS AGO WITH HX OF STENT PLACEMENT X 3. - Past Surgical History Past Surgical History: Yes Neuro Surgical History: No Pertinent History Cardiac: Cardiac Catheterization, Cardiac Stent, Pacemaker Respiratory: No Pertinent History Gastrointestinal: Cholecystectomy Genitourinary: No Pertinent History Musculoskeletal: No Pertinent History Female Surgical History: Lumpectomy, Tubal Ligation Other Surgical History: BLADDER "PATCHED" - Social History Smoking Status: Never smoker Exposure to second hand smoke: No Alcohol Use: None Drug Use: none Patient Lives Alone: No Significant Family History: heart disease, cancer, diabetes, hypertension - Nursing Vital Signs Nursing Vital Signs: Initial Vital Signs Temperature 97.6 F 03/01/20 10:10 Pulse Rate 73 10/15/19 10:10 Blood Pressure 169/83 10/15/19 10:10 O2 Sat by Pulse Oximetry 99 10/15/19 10:10 Pain Scale Pain Intensity 4 - Physical Exam General Appearance: no apparent distress, alert Eye Exam: PERRL/EOMI, eyes nml inspection Ears, Nose, Throat Exam: normal ENT inspection, TMs normal, pharynx normal, moist mucous membranes Neck Exam: normal inspection, non-tender, supple, full range of motion Respiratory Exam: normal breath sounds, lungs clear, No respiratory distress Cardiovascular Exam: regular rate/rhythm, normal heart sounds, normal peripheral pulses Gastrointestinal/Abdomen Exam: soft, normal bowel sounds, No tenderness, No mass Back Exam: normal inspection, normal range of motion, No CVA tenderness, No vertebral tenderness Extremity Exam: normal inspection, pelvis stable, No calf tenderness (Right lateral ankle and dorsum of foot both tender. Overlying soft tissue intact. No signs of trauma. PT DP pulses are palpable. Range of motion limited due to pain. Patient has history of kidney insufficiency. She agrees to Tylenol for pain control.) Neurologic Exam: alert, oriented x 3, cooperative, normal mood/affect, nml cerebellar function, nml station & gait, sensation nml, No motor deficits Skin Exam: normal color, warm, dry, No rash Lymphatic Exam: No adenopathy SpO2 Interpretation: normal SpO2: 99 O2 Delivery: Room Air - Course Nursing assessment & vital signs reviewed: Yes - Radiology Exams Foot X-ray Interpretation: Teleradiologist Report (no fractures or dislocations) Ankle X-ray Interpretation: Teleradiologist Report (No fracture or dislocation) Ordered Tests: Active Orders 24 hr Category Date Time Status ANKLE (3 VIEWS) Stat Exams 10/15/19 10:40 Completed FOOT (MINIMUM 3 VIEWS) Stat Exams 10/15/19 10:22 Completed CBC W DIFF Stat Lab 10/15/19 10:54 Completed CMP Stat Lab 10/15/19 10:54 Completed MAGNESIUM Stat Lab 10/15/19 10:54 Completed Medication Summary Discontinued Medications Generic Name Dose Route Start Last Admin Trade Name Freq PRN Reason Stop Dose Admin Acetaminophen 650 mg 10/15/19 10:24 10/15/19 10:33 Tylenol 325 Mg PO 10/15/19 10:25 650 mg STAT STA Administration Acetaminophen Confirm 10/15/19 10:32 Tylenol 325 Mg Administered 10/15/19 10:33 Dose 650 mg .ROUTE .[facility] ONE Lab/Rad Data: Laboratory Result Diagrams 10/15/19 10:54 10/15/19 10:54 Laboratory Results 10/15/19 10/15/19 Range/Units 10:54 10:54 WBC 4.5 (4.0-10.5) K/mm3 RBC 3.37 L (4.1-5.4) M/mm3 Hgb 11.0 L (12.0-16.0) gm/dl Hct 32.6 L (35-47) % MCV 96.7 (78-100) fl MCH 32.6 H (26-32) pg MCHC 33.7 (32-36) g/dl RDW 13.3 (11.5-14.0) % Plt Count 304 (150-450) K/mm3 MPV 9.0 (7.5-11.0) fl Gran % 57.3 (36.0-66.0) % Eos # (Auto) 0.14 (0-0.5) Absolute Lymphs (auto) 1.22 (1.0-4.6) Absolute Monos (auto) 0.53 (0.0-1.3) Lymphocytes % 27.3 (24.0-44.0) % Monocytes % 11.9 (0.0-12.0) % Eosinophils % 3.1 (0.00-5.0) % Basophils % 0.4 (0.0-0.4) % Absolute Granulocytes 2.56 (1.4-6.9) Basophils # 0.02 (0-0.4) Sodium 137 (137-145) mmol/L Potassium 4.9 (3.5-5.1) mmol/L Chloride 100 (98-107) mmol/L Carbon Dioxide 29 (22-30) mmol/L Anion Gap 12.6 (5-15) MEQ/L BUN 26 H (7-17) mg/dL Creatinine 1.46 H (0.52-1.04) mg/dL Estimated GFR 35.9 ML/MIN Glucose 92 (74-106) mg/dL Calcium 9.3 (8.4-10.2) mg/dL Magnesium 2.0 (1.6-2.3) mg/dL Total Bilirubin 0.60 (0.2-1.3) mg/dL AST 22 (14-36) U/L ALT 13 (0-35) U/L Alkaline Phosphatase 76 (38-126) U/L Serum Total Protein 6.5 (6.3-8.2) g/dL Albumin 3.8 (3.5-5.0) g/dL - Progress Progress: improved Progress Note: 10/15/19 13:31 Pain improved Tylenol. Patient declined IV. Patient states she will orally rehydrate at home. X-ray negative for acute fracture dislocation. Walking boot provided to patient. Counseled pt/family regarding: lab results, diagnosis, need for follow-up, rad results - Departure Departure Disposition: Home Clinical Impression: Ankle abrasion, Dehydration Condition: Stable Critical Care Time: No Referrals: MANI COKER [Primary Care Provider] - Instructions: Ankle Sprain (DC) Additional Instructions: Discharge/Care Plan CONNOR BRUCE was seen on 10/15/19 in the Emergency Room. The patient was counseled regarding Diagnosis,Lab results, Imaging studies, need for follow up and when to return to the Emergency Room. Prescriptions given: Discharge Note I have spoken with the patient and/or caregivers. I have explained the patient' s condition, diagnosis and treatment plan based on the information available to me at this time. I have answered the patient's and/or caregiver's questions and addressed any concerns. The patient and/or caregivers have as good understanding of the patient's diagnosis, condition and treatment plan as can be expected at this point. The vital signs have been stable. The patient's condition is stable and appropriate for discharge from the emergency department. The patient will pursue further outpatient evaluation with the primary care physician or other designated or consulting physician as outlined in the discharge instructions. The patient and/or caregivers are agreeable to this plan of care and follow-up instructions have been explained in detail. The patient and/or caregivers have received these instruction. The patient/and or caregivers are aware that any significant change in condition or worsening of symptoms should prompt an immediate return to this or the closest emergency department or call 911.
[2019-10-15] MEDS ORDERED: TYLENOL 325 MG ONE (10:32)
[2019-10-15 11:00] LABS: Absolute Neutrophil Ct (ANC) 2.56 (1.4-6.9); BASOPHIL % 0.4 % (0.0-0.4); Basophil (Absolute #) 0.02 (0-0.4); Eosinophil % 3.1 % (0.00-5.0); Eosinophil (Absolute #) 0.14 (0-0.5); Hematocrit 32.6 % (35-47); Lymphocyte (Absolute #) 1.22 (1.0-4.6); Lymphocytes % 27.3 % (24.0-44.0); Mean Cell Volume 96.7 fl (78-100); Mean Corpuscular Hemoglobin 32.6 pg (26-32); Mean Corpuscular Hgb Concent. 33.7 g/dl (32-36); Monocyte (Absolute #) 0.53 (0.0-1.3); Monocytes % 11.9 % (0.0-12.0); Neutrophil % 57.3 % (36.0-66.0); Platelet Count 304 K/mm3 (150-450); Red Blood Count 3.37 M/mm3 (4.1-5.4); Red Cell Distribution Width 13.3 % (11.5-14.0); White Blood Count 4.5 K/mm3 (4.0-10.5)
[2019-10-15 11:03] VITALS: PULSE 70
[2019-10-15 11:09] LABS: ALBUMIN 3.8 g/dL (3.5-5.0); ANION GAP 12.6 MEQ/L (5-15); BILIRUBIN,TOTAL 0.6 mg/dL (0.2-1.3); Calcium 9.3 mg/dL (8.4-10.2); Creatinine 1 1.46 mg/dL (0.52-1.04); Potassium 4.9 mmol/L (3.5-5.1); Total Protein 6.5 g/dL (6.3-8.2)
[2019-10-15 12:33] VITALS: BP 117/59
[2019-10-15 13:31] VITALS: O2SAT 99
--- NOTE | 2019-10-15 21:08 | XRAY ---
Indication: Pain following fall. Comparison: None 3 views of the right ankle demonstrates osteopenia, small medial malleolus tip heterotopic ossification, large heel spurs, and scattered vascular calcifications. No other bony, articular, or soft tissue abnormalities. Comment: Preliminary interpretation was made by [facility]. No critical discrepancy.
--- NOTE | 2019-10-15 21:10 | XRAY ---
Indication: Pain following fall. Comparison: None 3 nonweightbearing views of the right foot ankle demonstrates osteopenia, mild degenerative changes all IP joints, mild 1st tarsometatarsal degenerative changes, large heel spurs, and scattered vascular calcifications. No other bony, articular, or soft tissue abnormalities. Comment: Preliminary interpretation was made by [facility]. No critical discrepancy.
== END 2019-10-15 13:58 | disposition home or self-care (01) ==
LOC: ED 10:05
DX: S90.511A Abrasion, right ankle, initial encounter (principal); W01.198A Fall on same level from slipping, tripping and stumbling with subsequent striking against other object, initial encounter; M25.571 Pain in right ankle and joints of right foot; Z79.899 Other long term (current) drug therapy; I25.10 Atherosclerotic heart disease of native coronary artery without angina pectoris; E78.00 Pure hypercholesterolemia, unspecified; Z85.41 Personal history of malignant neoplasm of cervix uteri; I12.9 Hypertensive chronic kidney disease with stage 1 through stage 4 chronic kidney disease, or unspecified chronic kidney disease; N18.4 Chronic kidney disease, stage 4 (severe); Z95.0 Presence of cardiac pacemaker
CPT/HCPCS: 36415; 73610; 73630; 80053; 83735; 85025; 99284; A9270-GY